=== PATIENT | male | born 1975 | race Caucasian/White ===

== ENCOUNTER 2020-01-12 19:44 | Emergency (ER) | payer BC, SELFPAY ==
[2020-01-12 19:47] VITALS: BP 142/85; PULSE 99; RESP 16; TEMP 36.1; O2SAT 99
--- NOTE | 2020-01-12 20:00 | ED.ALLEREA ---
HPI - Allergic Reaction General Chief complaint: Allergic Reaction Stated complaint: ALLERGIC REACTION Time Seen by Provider: 01/12/20 19:55 Source: patient and RN notes reviewed Mode of arrival: ambulatory Limitations: no limitations History of Present Illness HPI narrative: A 44 y/o male, who is allergic to chicken, presents to the ED after eating a couple bites of chicken 1 hour ago. He states that he was eating out when he ordered a vegan potpie and after eating a couple bites he asked if there was chicken in it, and when he was told there was he decided to come here. He reports that he took 100 mg of Benadryl roughly 30 minutes ago. He notes that he has a Epipen but denies using it. He also denies any SOB, wheezing, tingling in throat, N/V/D, or a rash. MD complaint: allergic reaction Onset (ago): hour(s) (1) Exposure: other (chicken) Known history of allergy to: To chicken meat and eggs. Treatment prior to arrival: benadryl (100 mg) Related Data Home Medications Medication Instructions Recorded Confirmed cetirizine 10 mg tablet 10 mg PO DAILY 12/20/19 fluticasone propionate 50 1 spray NASAL DAILY 12/20/19 mcg/actuation nasal spray,suspension Allergies Allergy/AdvReac Type Severity Reaction Status Date / Time Penicillins Allergy Unknown Verified 06/02/19 07:47 POULTRY Allergy Mild Uncoded 12/19/10 17:29 Review of Systems Review of Systems: Narrative: ENT: Denies tingling in throat. RESPIRATORY: Denies wheezing or dyspnea. GASTROINTESTINAL: Denies nausea, vomiting, or diarrhea. SKIN: Denies rash. All systems reviewed & are unremarkable except as noted in HPI and below PMFSH Family History Family History Mother Family history of osteoporosis Sibling Patient's brother is in good health Father Family history of diabetes mellitus in first degree relative Diabetes mellitus Social History Social History Smoking status: Never smoker Second hand tobacco smoke exposure: No Alcohol intake: current Gender identity (if verbalized by the patient): Male Exam Narrative: Exam Narrative: GENERAL: Well-appearing, well-nourished, and in no acute distress. HEAD: Normocephalic, atraumatic. EYES: PERRLA and EOMI. ENT: Nares clear, no rhinorrhea or epistaxis. Mucous membranes moist. NECK: Supple. CHEST: Clear to auscultation. No respiratory distress. HEART: Regular rate and rhythm. No murmur heard. Normal peripheral pulses. ABDOMEN: Soft, nontender, nondistended, normal active bowel sounds. EXTREMITIES: Normal range of motion. No edema. SKIN: Warm, dry, no rash. NEURO: No focal deficits. Alert and oriented X3. Course Vital Signs Vital signs: Vital Signs Temperature 36.1 C L 01/12/20 19:47 Pulse Rate 99 01/12/20 19:47 Respiratory Rate 16 01/12/20 19:47 Blood Pressure 142/85 H 01/12/20 19:47 Pulse Oximetry 99 01/12/20 19:47 Temperature 36.1 C L 01/12/20 19:47 Pulse Rate 99 01/12/20 19:47 Respiratory Rate 16 01/12/20 19:47 Blood Pressure 142/85 H 01/12/20 19:47 Pulse Oximetry 99 01/12/20 19:47 MDM - Allergic Reaction MDM Narrative Medical decision making narrative: Patient presented for evaluation of possible allergic reaction. At this point, symptoms are very mild. No sign of anaphylaxis. No airway compromise, no severe urticaria, no 2 system involvement. Patient was given additional medications via IV, monitored and had no recurrent symptoms. Again, no signs of anaphylaxis or unstable vital signs. Patient was then discharged home in stable condition, vies follow-up with his primary care physician as scheduled or return if he had any recurrent symptoms, change in symptoms. Differential Diagnosis Differential diagnosis: Likely anaphylaxis, allergic reaction, contact dermatitis, adverse reaction to drug and urticaria Discharge Plan Discharge Clinical Impression: Allergic re
[2020-01-12] MEDS: FAMOTIDINE 20 MG/2 ML VIAL 40 MG IV PUSH (20:48)
[2020-01-12 22:02] VITALS: BP 121/75; PULSE 59; RESP 16; O2SAT 97
== END 2020-01-12 22:05 | disposition home or self-care (01) ==
PROVIDERS: Emergency Provider Emergency Medicine; PCP Internal Medicine
DX: T78.40XA Allergy, unspecified, initial encounter (principal); Z91.012 Allergy to eggs; Z91.018 Allergy to other foods
CPT/HCPCS: 96374; 96375; 99284; J1100

== ENCOUNTER 2020-07-01 15:15 | Emergency (ER) | payer BC, SELFPAY ==
--- NOTE | ~2020-07-01 | XR_ITS ---
XR toe 2nd RT min 2V 07/01/2020 15:59 Indication: Right second toe pain after injury Procedure: 3 views right second toe Comparison: No prior studies for comparison. Findings: There is a mildly displaced avulsion fracture ventral base second proximal phalanx. Mild so ft tissue swelling. No foreign body. No other fracture or traumatic malalignment is seen. Impression: 1: Mildly displaced avulsion fracture ventral base right second proximal. Reviewed, dictated and finalized at location A. Impression: 1: Mildly displaced avulsion fracture ventral base right second proximal.
[2020-07-01 15:21] VITALS: BP 126/83; PULSE 80; RESP 18; TEMP 36.1; O2SAT 98
--- NOTE | 2020-07-01 15:35 | ED.LOWEXIN ---
HPI - Extremity Injury (Lower) General Chief Complaint: Extremity Injury, Lower Stated Complaint: R 2ND TOE PAIN Time Seen by Provider: 07/01/20 15:36 Source: patient Mode of arrival: ambulatory Limitations: no limitations History of Present Illness HPI Narrative: Patient presents for evaluation of right second toe pain. Patient states that he was chasing his son, tripped over a garden hose, and hit his right foot on a stoop. Patient is reporting swelling, right second toe pain. There is mild bruising at the base of the toe. Patient denies numbness. No head trauma or loss of consciousness. No other injuries. Pain is mild, aching in nature. Patient has had no difficulty with ambulation. Related Data Home Medications Medication Instructions Recorded Confirmed cetirizine 10 mg tablet 10 mg PO DAILY 12/20/19 fluticasone propionate 50 1 spray NASAL DAILY 12/20/19 mcg/actuation nasal spray,suspension Allergies Allergy/AdvReac Type Severity Reaction Status Date / Time Penicillins Allergy Unknown Unknown Verified 07/01/20 15:28 POULTRY Allergy Severe Anaphylaxis Uncoded 07/01/20 15:28 Review of Systems Review of Systems: Narrative: CONSTITUTIONAL: Denies fever CV: Denies chest pain RESPIRATORY: Denies dyspnea. GASTROINTESTINAL: Denies abdominal pain SKIN: Denies rash, reports second toe bruising MUSCULOSKELETAL: Denies back pain, reports second great toe pain NEUROLOGIC: Denies headache, denies head trauma PMFSH Past Medical History Medical History Allergic rhinitis Allergy to chicken meat Depression Egg allergy Exposure to influenza Herpes zoster Hypercholesteremia Sleep apnea Surgical History Surgical History No history of previous surgery Family History Family History Mother Family history of osteoporosis Sibling Patient's brother is in good health Father Family history of diabetes mellitus in first degree relative Diabetes mellitus Social History Social History Smoking status: Never smoker Second hand tobacco smoke exposure: No Alcohol intake: current Gender identity (if verbalized by the patient): Male Exam Narrative: Exam Narrative: GENERAL: Awake, alert, conversant HEAD: Normocephalic, atraumatic. EYES: PERRLA and EOMI. ENT: Nares clear, no rhinorrhea or epistaxis. Mucous membranes moist. NECK: Supple. CHEST: No respiratory distress, breathing even and non labored HEART: Regular rate, sinus rhythm ABDOMEN:Non distended, non tender EXTREMITIES: Normal range of motion. No foot edema. Mild edema, ecchymosis at the base of the second phalynx, right foot. DP pulse 2+. Intact sensation distally. SKIN: Warm, dry, no rash. NEURO:No focal deficits. Alert and oriented x3 Course Vital Signs Vital signs: Vital Signs Temperature 36.1 C L 07/01/20 15:21 Pulse Rate 80 07/01/20 15:21 Respiratory Rate 18 07/01/20 15:21 Blood Pressure 126/83 07/01/20 15:21 Pulse Oximetry 98 07/01/20 15:21 Temperature 36.1 C L 07/01/20 15:21 Pulse Rate 80 07/01/20 15:21 Respiratory Rate 18 07/01/20 15:21 Blood Pressure 126/83 07/01/20 15:21 Pulse Oximetry 98 07/01/20 15:21 MDM - Extremity Injury (Lower) MDM Narrative Medical decision making narrative: Patient with mildly displays second right toe fracture at the base. Neurovascularly intact. Will give patient hard soled shoe. I advised he can follow-up with his primary or orthopedic surgeon if he wanted but often these are typically nonoperative management. Patient advised to rest, ice the extremity and take anti-inflammatories to help with symptom control. Advised him to ambulate with the use of the shoe. Patient then discharged home. Imaging Data Radiologist's impression: ITS Impressi
[2020-07-01 16:45] VITALS: BP 127/81; PULSE 82; RESP 18; O2SAT 98
== END 2020-07-01 16:47 | disposition home or self-care (01) ==
PROVIDERS: Emergency Provider Emergency Medicine; PCP Internal Medicine
DX: S92.511A Displaced fracture of proximal phalanx of right lesser toe(s), initial encounter for closed fracture (principal); E78.00 Pure hypercholesterolemia, unspecified; G47.30 Sleep apnea, unspecified; W22.8XXA Striking against or struck by other objects, initial encounter
CPT/HCPCS: 73660; 99284

== ENCOUNTER 2025-05-01 08:06 | Emergency (ER) | payer BC, SELFPAY ==
--- NOTE | 2025-05-01 08:09 | ED_ITS ---
HPI - Eye Problem General Chief complaint: Eye Problems Stated complaint: Eye Irritation Source: patient and RN notes reviewed Mode of arrival: ambulatory Limitations: no limitations History of Present Illness HPI Narrative: Patient is a 49-year-old male who presents to the [facility] with complaints of left eye pain and redness. He states that he has had bilateral eye strain for the past couple days and has been using [id number] drops. He states that when he woke up this morning he had increased pain to the left eye along with some mild redness. He reports some drainage from the eye. Denies visual disturbance. Related Data Home Medications ?Medication ?Instructions ?Recorded ?Confirmed ?Last Taken ?Type cetirizine 10 mg tablet (Zyrtec) 10 mg PO DAILY 12/20/19 05/01/25 Unknown History Allergies Allergy/AdvReac Type Severity Reaction Status Date / Time Penicillins Allergy Unknown Unknown Verified 05/01/25 08:20 POULTRY Allergy Severe Anaphylaxis Uncoded 05/01/25 08:20 Review of Systems Review of Systems: CONSTITUTIONAL: Denies fever, chills, or sweats. EYES: Denies visual changes, but reports left eye pain and redness. ENT: Denies otalgia and sore throat CARDIOVASCULAR: Denies chest pain, palpitations, or edema. RESPIRATORY: Denies cough or dyspnea. GASTROINTESTINAL: Denies abdominal pain, nausea, vomiting, or diarrhea. GENITOURINARY: Denies dysuria or hematuria. SKIN: Denies rash or itching. MUSCULOSKELETAL: Denies back pain, joint pain, or myalgia. NEUROLOGIC: Denies headache, numbness, or weakness. Pertinent positives per HPI. [facility] Past Medical History Medical History (Updated 05/01/25 @ 08:34 by Ligia Gonzalez APRN) Allergy to chicken meat Exposure to influenza Herpes zoster Allergic rhinitis Depression Sleep apnea Egg allergy Hypercholesteremia Surgical History Surgical History No history of previous surgery Family History Family History Mother Family history of osteoporosis Sibling Patient's brother is in good health Father Family history of diabetes mellitus in first degree relative Diabetes mellitus Social History Social History Smoking status: Never smoker Second hand tobacco smoke exposure: No Alcohol intake: current Gender identity (if verbalized by the patient): Male Comments At the time of my signature, I reviewed and agree with the nursing past medical, surgical, social, and family history. There is no relevant family history pertinent to the patient complaint. Exam Narrative: GENERAL: This is a well-nourished, well-developed patient, in no apparent distress. HEAD: normocephalic, atraumatic. EYES: Injection noted to the left eye. Vision is grossly intact. EARS: External ears normal. Hearing grossly intact. NOSE: External nose normal with no obvious nasal discharge, nares without redness, no rhinorrhea. THROAT: Mucous membranes moist, posterior pharynx clear. NECK: Neck supple, non-tender without lymphadenopathy, masses or thyromegaly. CARDIOVASCULAR: Regular rate and rhythm without murmurs, gallops, or rubs. RESPIRATORY: Clear to auscultation. GASTROINTESTINAL: Abdomen soft. No guarding. SKIN: warm, intact with no suspicious lesions or rash, good texture and turgor. NEURO: awake, alert, and oriented to person, place and time. There were no obvious focal neurologic abnormalities. Course Course Level of Care: Express Care Visit Vital Signs Vital signs: Vital Signs Temperature 97.2 F L 05/01/25 08:12 Pulse Rate 51 L 05/01/25 08:12 Respiratory Rate 16 05/01/25 08:12 Blood Pressure 136/90 05/01/25 08:12 Pulse Oximetry 99 05/01/25 08:12 Oxygen Delivery Room Air 05/01/25 08:12 Temperature 97.2 F L 05/01/25 08:12 Pulse Rate 51 L 05/01/25 08:12 Respiratory Rate 16 05/01/25 08:12 Blood Pressure 136/90 05/01/25 08:12 Pulse Oximetry 99 05/01/25 08:12 Oxygen Delivery Room Air 05/01/25 08:12 Reviewed MDM - Eye Problem MDM Narrative Medical decision making narrative: You have been given a prescription for eye drops. Use the eye drops as instructed. If you are not better in two (2) days, you need to follow up with an bell spinner. Do not rub the eye or put anything else in the eye, this can cause abrasions (scratches) on the eye or lead to vision loss. Also it is important not to touch the tube or tip of drops to the eye, as this can cause further infection. Wash your hands very well before instilling the medication. Handwashing can help prevent the spread of disease. Follow up with PCP in 7-10 days Return to ER for problems Contact [facility] if you need an Manufacturer'S Representative [] Differential Diagnosis Differential diagnosis: Likely corneal abrasion, conjunctivitis and hyphema Critical Care Time Critical Care Time Critical Care Time: No Discharge Plan Discharge Clinical Impression: Corneal irritation of left eye Patient Disposition: Home Condition: Stable Instructions: Corneal Abrasion (ED), How to Use Eye Drops (ED) Additional Instructions: You have been given a prescription for eye drops. Use the eye drops as instructed. If you are not better in two (2) days, you need to follow up with an bell spinner. Do not rub the eye or put anything else in the eye, this can cause abrasions (scratches) on the eye or lead to vision loss. Also it is important not to touch the tube or tip of drops to the eye, as this can cause further infection. Wash your hands very well before instilling the medication. Handwashing can help prevent the spread of disease. Follow up with PCP in 7-10 days Return to ER for problems Contact [facility] if you need an Manufacturer'S Representative [] Patient Language: Spanish Prescriptions: New erythromycin 5 mg/gram (0.5 %) ointment 1 cm LEFT EYE DAILY Qty: 3.5 0RF No Action cetirizine [Zyrtec] 10 mg tablet 10 mg PO DAILY epinephrine 0.3 mg/0.3 mL auto-injector 0.3 mg IM ONCE Qty: 2 2RF Rx Instructions: as a single dose Follow-up/Referrals: UNKNOWN,DOCTOR [Non-Staff] - Time of Disposition: 08:34
[2025-05-01 08:12] VITALS: BP 136/90; PULSE 51; RESP 16; TEMP 36.2; O2SAT 99
== END 2025-05-01 08:40 | disposition home or self-care (01) ==
PROVIDERS: Emergency Provider Nurse Practitioner
DX: H18.892 Other specified disorders of cornea, left eye (principal); E78.00 Pure hypercholesterolemia, unspecified
CPT/HCPCS: 99213; G0463

== ENCOUNTER 2025-09-30 17:51 | Emergency (ER) | payer BC, SELFPAY ==
--- OUTSIDE RECORDS SUMMARY | 2024-04-16 15:30 | XMS_ITS ---
Author Organization [facility] ([address]) Address [address] [place] [address] Care Team Providers Care Travertine Installer Name Role Phone Bruno Starr Primary Care Provider UnavailGela Cummings Unavailable [phone] ZZ-Migration, Provider Unavailable Unavailab le Allergies Allergen (clinical drug ingredient) Drug/Non Drug Allergy documented on EMR Reaction Allergy Type Onset Date Status Information temporarily unavailable Penicillin Hives, throat swelling Drug Allergy Active REASON FOR VISIT Multum To Medispan Conversion Encounter Medications Medication SIG (Take, Route, Frequency, Duration) Notes Start Date End Date Status buPROPion HCl 200 MG 1 TAB(S) ORALLY ONCE A DAY; Duration: 30 DAY(S) *Please review and pick correct strength-formulati on from Medispan options. If intended option is not shown, discontinue and re-order from Quick Search* Active clonazePAM 0.5 MG 1 tab(s) orally once a day; Duration: 30 day(s) Active PATANASE (OLOPATADINE HYDROCHLORIDE) 665 MCG/INH 2 SPRAY(S) INTRANASALLY 2 TIMES A DAY; Duration: 30 DAY(S) *Please review for potential replacement for e-prescription and drug interaction check* 06/27/2011 Active Flonase Allergy Relief 50 MCG/ACT 2 spray(s) intranasally once a day; Duration: 30 day(s) 06/27/2011 Active NASAL WASHES N/A DIRECTED INTRANASALLY NEEDED; Duration: 30 *Please review for potential replacement for e-prescription and drug interaction check* 06/27/2011 Active EpiPen 2-Jonathan 0.3 MG/0.3ML 0.3 mg intramuscularly once; Duration: 1 dose(s) 06/27/2011 Active ZyrTEC Allergy 10 MG 1 tab(s) orally once a day; Duration: 30 day(s) 06/27/2011 Active Simvastatin 20 MG 1 tab(s) orally once a day (at bedtime); Duration: 30 day(s) Active Pataday 0.2 % 1 gtt in each affect ed eye once a day; Duration: 30 day(s) 06/27/2011 Active Encounters Encounter Location Date Provider Diagnosis [address] [address] 04/16/2024 Provider ZZ-Migration Allergic rhinitis due to allergen 477.8 ; Chronic allergic conjunctivitis NOS 372.14 and Anaphylactic shock due to adverse food reaction NOS 995.60 Assessments Encounter Date Diagnosis (ICD Code) Assessment Notes Treatment Notes Treatment Clinical Notes Section Notes 04/16/2024 Allergic rhinitis due to allergen (ICD9-CM - 477.8) 04/16/2024 Chronic allergic conjunctivitis NOS (ICD9-CM - 372.14) 04/16/2024 Anaphylactic shock due to adverse food reaction NOS (ICD9-CM - 995.60) Plan Of Treatment Medication Medication Name Sig Start Date Stop Date Notes PATANASE (OLOPATADINE HYDROCHLORIDE) 665 MCG/INH 2 SPRAY(S) INTRANASALLY 2 TIMES A DAY; Duration: 30 DAY(S) 06/27/2011 *Please review for potential replacement for e-prescription and drug interaction check* Flonase Allergy Relief 50 MCG/ACT 2 spray(s) intranasally once a day; Duration: 30 day(s) 06/27/2011 NASAL WASHES N/A DIRECTED INTRANAS ALLY NEEDED; Duration: 30 06/27/2011 *Please review f or potential replacement for e-prescription and drug interaction check* EpiPen 2-Jonathan 0.3 MG/0.3ML 0.3 mg intramuscularly once; Duration: 1 dose(s) 06/27/2011 ZyrTEC Allergy 10 MG 1 tab(s) orally onc e a day; Duration: 30 day(s) 06/27/2011 Pataday 0.2 % 1 gtt in each affect ed eye once a day; Duration: 30 day(s) 06/27/2011 Progress Notes * Mars YOON PDOB:1975 (50 yo M)Acc No.[id number]:04/16/2024 Patient: Mars DURHAM Provider: Anita Petty :1975 A ge:48 Y S ex:Male Date:04/16/2024 Address:[address] [place] [address] Pcp:Bruno Starr Subjective: * Chief Complaints: * 1 . Multum To Medispan Conversion Encounter. * Medical History: * Medications: T aking buPROPion HCl 200 MG TABLET 1 TAB(S) ORALLY ONCE A DAY , Notes to Pharmacist: *Please review and pick correct [facility]. If intended option is not shown, discontinue and re-order from Quick Search*, Taking clonazePAM 0.5 MG Tablet 1 tab(s) orally once a day , Taking Simvastatin 20 MG Tablet 1 tab(s) orally once a day (at bedtime) * Allergies: P enicillin: Hives, throat swelling - Allergy. Objective: * Vitals: Assessment: * Assessment: 1. A llergic rhinitis due to allergen - 477.8 (Primary) 2 . C hronic allergic conjunctivitis NOS - 372.14 3 . A naphylactic shock due to adverse food reaction NOS - 995.60 Plan: * Treatment: 2. C hronic allergic conjunctivitis NOS Start Pataday Solution, 0.2 %, 1 gtt, in each affected eye, once a day, 30 day(s), 1, Refills 3.? 3. A naphylactic shock due to adverse food reaction NOS Start EpiPen 2-Jonathan Solution Auto-injector, 0.3 MG/0.3ML, 0.3 mg, intramuscularly, once, 1 dose(s), 4, Refills PRN. * Billing Information: * Visit Code: * Procedure Codes: * Electronic signature of Armen De La TorreZ-Migration on 09/30/2025 at 05:53 PM DEMONSTRATOR KNITTING Sign off status: Pending * Provider: Anita Petty Date: 0 04/16/2024 Generated for Judy lopez/Adelita/Marensmitting on: 1 11/30/2024 05:53 PM DEMONSTRATOR KNITTING
--- NOTE | ~2025-09-30 | XR_ITS ---
EXAMINATION: XR hand LT min 3V, 09/30/2025 18:43 OIL WINTERIZER HISTORY: L hand laceration COMPARISON: No comparisons available. Findings: No acute fracture or malalignment. No significant degenerative changes. Soft tissues unremarkable. Impression: No acute fracture or malalignment. Reviewed, dictated and finalized at location P. WINTERIZER Impression: No acute fracture or malalignment.
--- OUTSIDE RECORDS SUMMARY | 2025-09-30 17:53 | XMS_ITS | Patient Health Record ---
Author Organization [facility] [place] ([address]) Address [address] [place] [address] Care Team Providers Care Electronic Imaging System Operator Name Role Phone Bruno Starr Primary Care Provider Gela Brito Unavailable [phone] Allergies Allergen (clinical drug ingredient) Drug/Non Drug Allergy documented on EMR Reaction Allergy Type Onset Date Status Information temporarily unavailable Penicillin Hives, throat swelling Drug Allergy Active Reason For Referral No Information Medications Medication SIG (Take, Route, Frequency, Duration) Notes Start Date End Date Status EPIPEN 2-JONATHAN 0.3 mg 0.3 mg intramuscularly once; Duration: 1 dose(s) 06/27/2011 Active buPROPion HCl 200 MG 1 TAB(S) ORALLY ONCE A DAY; Duration: 30 DAY(S) *Please review and pick correct strength-formulati on from [facility] options. If intended option is not shown, discontinue and re-order from Quick Search* Active EpiPen 2-Jonathan 0.3 MG/0.3ML 0.3 mg intramuscularly once; Duration: 1 dose(s) 06/27/2011 Active BUPROPION 200 mg 1 tab(s) orally once a day; Duration: 30 day(s) Active ZyrTEC Allergy 10 MG 1 tab(s) orally once a day; Duration: 30 day(s) 06/27/2011 Active Simvastatin 20 MG 1 tab(s) orally once a day (at bedtime); Duration: 30 day(s) Active Pataday 0.2 % 1 gtt in each affect ed eye once a day; Duration: 30 day(s) 06/27/2011 Active PATANASE (OLOPATADINE HYDROCHLORIDE) 665 MCG/INH 2 [...] e-prescription and drug interaction check* 06/27/2011 Active SIMVASTATIN 20 mg 1 tab(s) orally once a day (at bedtime); Duration: 30 day(s) Active clonazePAM 0.5 MG 1 tab(s) orally once a day; Duration: 30 day(s) Active CLONAZEPAM 0.5 mg 1 tab(s) orally once a day; Duration: 30 day(s) Active ZYRTEC 10 mg 1 tab(s) orally once a day; Duration: 30 day(s) 06/27/2011 Active FLONASE 0.05 mg/inh 2 spray(s) intranasally once a day; Duration: 30 day(s) 06/27/2011 Active PATADAY 0.2% 1 gtt in each affect ed eye once a day; Duration: 30 day(s) 06/27/2011 Active Problems Problem Type SNOMED Code ICD Code Onset Dates Problem Status W/U Status Risk Notes Problem Information temporarily unavailable Chronic allergic conjunctivitis NOS (372.14) Active confirmed Problem Information temporarily unavailable Allergic rhinitis due to allergen (477.8) Active confirmed Problem Information temporarily unavailable Anaphylactic shock due to adverse food reaction NOS (995.60) Active confirmed Problem Information temporarily unavailable HX-PENICILLIN ALLERGY (V14.0) Active confirmed Plan Of Treatment No Information Insurance Providers Payer Name Payer Address Payer Phone Subscriber Number Group Number Insured Name Patient Relationship to Insured Coverage Start Date Coverage End Date [facility] [address] [place] [address] [id number] Jacqueline Taylor Spouse - patient is the spouse of the insured Medical (General) History Medical History History ICD Code Allergic rhinoconjunctivitis Food allergy to poultry and egg yolk Obstructive sleep apnea Hyperlipidemia Anxiety/depression Surgical History Surgery Date(Month/Year) Fractured right thumb 2004 Hospitalization History Reason Date(Month/Year) Food anaphylaxis 1998
--- OUTSIDE RECORDS SUMMARY | 2025-09-30 17:53 | XMS_ITS | Clinical Summary ---
Author Organization [facility] Address [address] [place] [address] Phone Care Team Providers Care Evp Business Development Name Role Phone Unavailable Primary Care Provider Unavailabl e Immunizations Immunization Administration Dates Next Due INFLUENZA VACCINE QUADRIVALE NT 6 MOS UP PF IM 08/14/2020 INFLUENZA VACCINE QUADRIVALE NT RECOMB 18 YR UP PF IM 08/12/2023,07/30/2022,08/14/2021 INFLUENZA VACCINE RECOMBINAN T TRIVALENT, (9 YR UP), 0.5ML (PF), IM 08/03/2024 Influenza Vaccine Tri Rcmb 18+ PF IM 08/17/2019 Social History Tobacco Use Types Packs/Day Years Used Date Smoking Tobacco: Never Assessed Sex and Gender Information Value Date Recorded Sex Assigned at Not on file 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
--- OUTSIDE RECORDS SUMMARY | 2025-09-30 17:54 | XMS_ITS | Clinical Summary ---
Author Organization [facility] Building [facility] Address [address] [place] [address] Care Team Providers Care Hand Fabric Cutter Name Role Phone Michele Sinclair MD Primary Care Provider +1- [phone] Allergies Active Allergy Reactions Criticality Noted Date Comments Penicillins Unknown 06/25/2017 Medications cetirizine (ZyrTEC) 10 mg tablet Take 1 tablet (10 mg total) by mouth daily Active EPINEPHrine 0.3 mg/0.3 mL auto-injection syringeIndicati ons:Anaphylaxis Inject 0.3 mL (0.3 mg total) into the muscle as instructed as needed for anaphylaxis Call 911 after use. 3 each 3 5 Active atorvastatin (LIPITOR) 20 mg tablet Take 1 tablet (20 mg total) by mouth daily 90 tablet 4 5 09/15/20 26 Active Active Problems Problem Noted Date Diagnosed Date Encounter for colorectal cancer screening 2024 Family history of premature coronary artery dise ase 09/15/2025 BMI 27.0-27.9,adult 09/15/2025 COVID-19 03/04/2022 Encounters Date Type Department Care Team Description 09/15/2025 8:20 AM ADMINISTRATIVE SALES ASSISTANT Office [facility] [address] [address] Michele Sinclair MD Health maintenance examination (Primary Dx); Encounter for colorectal cancer screening; Family history of premature coronary artery disease; BMI 27.0-27.9,adult 09/15/2025 Results Follow-Up [facility] [address] [place] [phone] Michele Sinclair MD POCT hemoglobin A1c, POCT lipid panel, Comprehensive metabolic panel, Additional followed-up results: 2 from Last 3 Months Immunizations Immunization Administration Dates Next Due Flucelvax Influenza Quad MDI 11/20/2013 Influenza, Quadrivalent, Rec ombinant, Egg Free, Preservative Free, Intramuscular 08/12/2023,07/30/2022,08/14/2021 Influenza, Quadrivalent, Spl it, Preservative Free, Intramuscular 08/14/2020 Influenza, Trivalent, Adjuva nted, Intramuscular 08/03/2024,08/17/2019 Influenza, Trivalent, Cell C ulture-based MDCK, Preservative Free, Antibiotic Free, Intramuscular 07/14/2025 Influenza, Trivalent, IM (MDV) 11/20/2013 Influenza, Trivalent, Recomb inant, Egg Free, Preservative Free, Antibiotic Free, IM (FLUBLOK) 08/03/2024 Pfizer SARS-CoV-2 Monovalent Vaccination (12+ Yrs) PURPLE 01/24/2021,01/03/2021 Tdap 09/15/2025,06/03/2011 Surgical History Surgery Date Site/Laterality Comments VASECTOMY Medical History Medical History Date Comments DEBRA (obstructive sleep apnea) Family History Medical History Relation Name Comments No Known Problems Brother No Known Problems Daughter Heart attack Father 68 Heart attack Maternal Grandmother No Known Problems Mother Dementia Paternal Grandmother 94 No Known Problems Son Relation Name Status Comments Brother Alive Daughter Alive Father 68 Maternal Grandfather Other Maternal Grandmother Mother Alive Paternal Grandfather Paternal Grandmother 94 Son Alive Social History Tobacco Use Types Packs/Day Years Used Date Smoking Tobacco: Never Smokeless Tobacco: Never Tobacco Cessation:Counseling Given: Not Answered Alcohol Use Standard Drinks/Week Comments Yes 0 (1 standard drink = 0.6 oz pur e alcohol) Sex and Gender Information Value Date Recorded Sex Assigned at Not on file Legal Sex Male 8:07 AM CDT Gender Identity Male 05/01/2025 6:24 AM CDT Sexual Orientation Not on file 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 Not on file Not on file Last Filed Vital Signs Vital Sign Reading Time Taken Comments Blood Pressure 143/85 09/15/2025 8:19 AM ADMINISTRATIVE SALES ASSISTANT Pulse 54 09/15/2025 8:19 AM ADMINISTRATIVE SALES ASSISTANT Temperature 36.5 C (97.7 F) 01/28/2024 1:51 PM CDT Respiratory Rate 18 05/07/2023 4:15 PM CDT Oxygen Saturation 100% 09/15/2025 8:19 AM ADMINISTRATIVE SALES ASSISTANT Inhaled Oxygen Concentration - - Weight 87.1 kg (192 lb) 09/15/2025 8:19 AM ADMINISTRATIVE SALES ASSISTANT Height 177.8 cm (5' 10) 09/15/2025 8:19 AM ADMINISTRATIVE SALES ASSISTANT Body Mass Index 27.55 09/15/2025 8:19 AM ADMINISTRATIVE SALES ASSISTANT Plan of Treatment Health Maintenance Due Date Last Done Comments Colon Cancer Screening-Colonoscopy 1976 Depression Screening 1976 Hepatitis C Screening 1976 Hepatitis B Screening 1994 Regular Well Visit/Exam 18-64 09/15/2026 09/15/2025, 01/28/2024, 12/17/2021 DTaP/Tdap/Td Vaccine (3 - Td or Tdap) 09/15/2035 09/15/2025, 06/03/2011 Covid-19 Vaccine Completed 07/14/2025, , 07/25/2023, Additional history exists Influenza Vaccine Completed 07/14/2025, , 08/03/2024, Additional history exists Pneumococcal vaccine <65 Aged Out No longer eligible based on patient's age to complete this topic Procedures Procedure Name Priority Date/Time Associated Diagnosis Comments POCT LIPID PANEL Routine 09/15/2025 8:31 AM ADMINISTRATIVE SALES ASSISTANT Health maintenance examination POCT HEMOGLOBIN A1C Routine 09/15/2025 8 :28 AM ADMINISTRATIVE SALES ASSISTANT Health maintenance examination PSA SCREEN Routine 09/15/2025 7:47 AM ADMINISTRATIVE SALES ASSISTANT Health maintenance examination CBC WITH AUTO DIFFERENTIAL Routine 09/15/2025 7:47 AM ADMINISTRATIVE SALES ASSISTANT Health maintenance examination COMPREHENSIVE METABOLIC PANEL Routine 09/15/2025 7:47 AM ADMINISTRATIVE SALES ASSISTANT Health maintenance examination from Last 3 Months Results * (ABNORMAL) POCT lipid panel (09/15/2025 8:31 AM ADMINISTRATIVE SALES ASSISTANT) Pathologist [facility] Cholesterol, POC 226 <200 MG/DL HDL, POC 42 >=40 mg/dL Triglycerides, POC 182(A) <=149 mg/dL LDL Cholesterol POC 148(A) <=129 mg/dL Chol/HDL Ratio, POC 5.3 NONE Non-HDL Cholesterol, POC 184 NONE mg/dL Cholesterol Total, POC 226(A) 30 - 199 mg/dL Capillary blood 09/15/2025 8 :31 AM ADMINISTRATIVE SALES ASSISTANT us Michele Sinclair MD POINT OF CARE TEST ORDERAB LES Final Result * POCT hemoglobin A1c (09/15/2025 8:28 AM ADMINISTRATIVE SALES ASSISTANT) [facility] Hemoglobin A1C, POC 5.2 4.0 - 5.6 % Blood 09/15/2025 8:28 AM ADMINISTRATIVE SALES ASSISTANT us Michele Sinclair MD POINT OF CARE TEST ORDERAB LES Final Result * PSA screen (09/15/2025 7:47 AM ADMINISTRATIVE SALES ASSISTANT) [facility] PSA, Total 1.0 0.0 - 4.0 ng/mL [facility] Blood 09/15/2025 7:47 AM ADMINISTRATIVE SALES ASSISTANT 09/15/2025 9:22 AM ADMINISTRATIVE SALES ASSISTANT us Michele Sinclair MD LAB BLOOD ORDERABLES Final Result [facility] [address] [phone] * (ABNORMAL) CBC with auto differential (09/15/2025 7:47 AM ADMINISTRATIVE SALES ASSISTANT) [facility] WBC 5.9 3.5 - 10.0 K/uL [facility] RBC 4.05(L) 4.60 - 6.20 M/uL [facility] Hemoglobin 13.1(L) 13.9 - 17.7 g/dL [facility] Hematocrit 37.1 35.0 - 55.0 % [facility] MCV 91.5 75.0 - 100.0 fL [facility] MCH 32.30 25.00 - 35.00 pg [facility] MCHC 35.30 31.00 - 38.00 g/dL [facility] RDW 13.2 11.0 - 16.0 % [facility] Platelets 222 140 - 400 K/uL [facility] MPV 9.2 8.0 - 11.0 fL [facility] Granulocyte, Absolute 3.7 1.2 - 8.0 K/uL [facility] Lymphocyte, Absolute 1.7 0.5 - 5.0 K/uL [facility] Monocyte, Absolute 0.5 0.1 - 1.5 K/uL [facility] Granulocyte, Percentage 62.9 35.0 - 80.0 % [facility] Lymphocyte, Percentage 29.7 15.0 - 50.0 % [facility] Monocyte, Percentage 7.4 2.0 - 15.0 % [facility] Blood 09/15/2025 7:47 AM ADMINISTRATIVE SALES ASSISTANT 09/15/2025 9:22 AM ADMINISTRATIVE SALES ASSISTANT us Michele Sinclair MD LAB BLOOD ORDERABLES Final Result [facility] [address] [phone] * Comprehensive metabolic panel (09/15/2025 7:47 AM ADMINISTRATIVE SALES ASSISTANT) [facility] Glucose 88 74 - 200 mg/dL [facility] BUN 9 6 - 20 mg/dL [facility] Creatinine 0.83 0.70 - 1.30 mg/dL [facility] BUN/Creat Ratio 10 Ratio [facility] Bilirubin, Total 0.3 0.0 - 1.2 mg/dL [facility] AST (SGOT) 24 0 - 40 U/L [facility] ALT (SGPT) 17 10 - 50 U/L [facility] Alkaline phosphatase 72 40 - 129 U/L [facility] Calcium 9.4 8.6 - 10.0 mg/dL [facility] Sodium 137 135 - 145 mEq/L [facility] Potassium 4.0 3.5 - 5.1 mEq/L [facility] Chloride 102 98 - 107 mEq/L [facility] CO2 27.7 22.0 - 32.0 mEq/L [facility] Anion Gap 7 3 - 12 mEq/L [facility] Total Protein 7.0 6.0 - 8.1 g/dL [facility] Albumin 4.6 3.5 - 5.2 g/dL [facility] Globulin 2.4 g/dL [facility] Albumin/Globulin 1.9 Ratio [facility] eGFR 107.22 [facility] Blood 09/15/2025 7:47 AM ADMINISTRATIVE SALES ASSISTANT 09/15/2025 9:22 AM ADMINISTRATIVE SALES ASSISTANT Michele Sinclair MD LAB BLOOD ORDERABLES Final Result [facility] [address] [address], [facility] from Last 3 Months Insurance [employer] ACCESS CHOICE [employer] ACCESS CHOICE [employer] ACCESS CHOICE Care Teams Hand Fabric Cutter Relationship Specialty Start Date End Date Michele Sinclair MD PCP - General Internal Medicine 11/29/21
[2025-09-30 17:56] VITALS: BP 167/98; PULSE 70; RESP 18; TEMP 36.6; O2SAT 97
[2025-09-30 20:28] VITALS: BP 128/72; PULSE 82; RESP 18; TEMP 36.4; O2SAT 100
[2025-09-30] MEDS: CEPHALEXIN 500 MG CAPSULE PO (20:34)
--- NOTE | 2025-09-30 22:10 | ED.UPPEXIN ---
HPI - Extremity Injury (Upper) General Chief Complaint: Extremity Injury, Upper Stated Complaint: upper extremity injruy Time Seen by Provider: 09/30/25 19:28 History of Present Illness HPI narrative: Patient was doing some woodworking, and accidentally hit his left thumb with a saw, thankfully a retracted automatically but he did injure his left thumb tip. Bleeding controlled and shots up-to-date Related Data Home Medications ?Medication ?Instructions ?Recorded ?Confirmed ?Last Taken ?Type cetirizine 10 mg tablet (Zyrtec) 10 mg PO DAILY 12/20/19 05/01/25 Unknown History Allergies Allergy/AdvReac Type Severity Reaction Status Date / Time Penicillins Allergy Unknown Unknown Verified 09/30/25 17:59 POULTRY Allergy Severe Anaphylaxis Uncoded 05/01/25 08:20 Review of Systems Review of Systems: All systems reviewed & are unremarkable except as noted in HPI and below PMFSH Past Medical History Medical History (Updated 10/01/25 @ 00:00 by [facility]) Allergy to chicken meat Exposure to influenza Herpes zoster Allergic rhinitis Depression Sleep apnea Egg allergy Hypercholesteremia Surgical History Surgical History No history of previous surgery Family History Family History Mother Family history of osteoporosis Sibling Patient's brother is in good health Father Family history of diabetes mellitus in first degree relative Diabetes mellitus Social History Social History Smoking status: Never smoker Second hand tobacco smoke exposure: No Alcohol intake: current Gender identity (if verbalized by the patient): Male Exam Narrative: EXAMINATION OF ORGAN SYSTEMS/BODY AREAS: Constitutional: Vital signs per nursing GENERAL:[No acute distress, non-toxic appearing.] HEAD: Normal with no signs of head trauma. EYES: EOMI, conjunctiva normal ENT: Hearing grossly intact LUNGS: Nonlabored breathing. HEART: [Regular rate and rhythm] ABD: [Soft], [nontender to palpation] EXT: Normal range of motion; left thumbnail with partial avulsion in multiple pieces, bleeding under nail SKIN: See above NEURO: [Alert and oriented x 3. No gross focal sensory or strength deficits.] PSYCH: Normal affect Course Vital Signs Vital signs: Vital Signs Temperature 97.8 F 09/30/25 17:56 Pulse Rate 70 09/30/25 17:56 Respiratory Rate 18 09/30/25 17:56 Blood Pressure 167/98 H 09/30/25 17:56 Pulse Oximetry 97 09/30/25 17:56 Oxygen Delivery Room Air 09/30/25 17:56 Temperature 97.6 F 09/30/25 20:28 Pulse Rate 82 09/30/25 20:28 Respiratory Rate 18 09/30/25 20:28 Blood Pressure 128/72 09/30/25 20:28 Pulse Oximetry 100 09/30/25 20:28 Oxygen Delivery Room Air 09/30/25 20:28 Procedures Laceration Laceration 1: Date: 09/30/25 Time: 20:30 Site: hand Side (If applicable): left Size (cm): 2 Description: linear and irregular Depth: simple, single layer Pre-repair: wound explored, irrigated, irrigated extensively, minor debridement and other (Avulsed nail removed) ====== Skin Level ====== Skin layer closed with: vicryl Size (cm): 4-0 Number of sutures: 2 Technique: simple, interrupted ====== Subcutaneous Layer ====== ====== Muscle Layer ====== ====== Tendon Layer ====== Nerve Block Nerve Block 1: Nerve block date: 09/30/25 Nerve block time: 20:30 Local Anesthetic: bupivacaine 0.25% Amount of anesthesia used (mL): 3 Side: left Nerve Blocks: digital Procedure Successful: Yes Patient Tolerated Procedure: well and no complications Complications: none MDM - Extremity Injury (Upper) MDM Narrative Medical decision making narrative: Patient presenting here with saw injury to his left thumb. On exam he does have injury to his left thumb, x-ray viewed interpreted by myself showing distal phalanx fracture, nondisplaced. See procedure note for nerve block, after anesthesia achieved, I was able to remove the room and/broken avulsed nail pieces, irrigated thoroughly, did find laceration to the nailbed, wound margins revised, laceration repaired with 2 absorbable sutures. Discussed case with Dr Wiggins who will follow-up with him in clinic, will start him on antibiotics, wound is dressed and a splint placed. Patient agreeable to plan with return precautions Discharge Plan Discharge Clinical Impression: Injury of thumb, left Patient Disposition: Home Condition: Stable Instructions: Antibiotic Form, Finger Fracture (ED), Acute Wounds (ED) Additional Instructions: Please see the medications as prescribed, and follow-up with the hand doctor, keep the wound clean, change the dressing at least once a day, and if you notice any worsening redness or pain or anything else concerning, please come back to the hospital. Patient Language: Bolivian Prescriptions: New cephalexin 500 mg capsule 500 mg PO Q12H 5 Days Qty: 10 0RF No Action erythromycin 5 mg/gram (0.5 %) ointment 1 cm LEFT EYE DAILY Qty: 3.5 0RF cetirizine [Zyrtec] 10 mg tablet 10 mg PO DAILY epinephrine 0.3 mg/0.3 mL auto-injector 0.3 mg IM ONCE Qty: 2 2RF Rx Instructions: as a single dose Follow-up/Referrals: PHYSICIAN NOT ON STAFF,NONSTAFF [Non-Staff] Jake Wiggins MD [Physician, Orthopedics] - 3 Days
== END 2025-09-30 21:21 | disposition home or self-care (01) ==
PROVIDERS: Emergency Provider Emergency Medicine; PCP Internal Medicine
DX: S61.112A Laceration without foreign body of left thumb with damage to nail, initial encounter (principal); E78.00 Pure hypercholesterolemia, unspecified; G47.30 Sleep apnea, unspecified; W31.2XXA Contact with powered woodworking and forming machines, initial encounter
CPT/HCPCS: 12001; 73130; 99283; A9270

== ENCOUNTER 2025-10-01 22:21 | Emergency (ER) | payer BC, SELFPAY ==
--- OUTSIDE RECORDS SUMMARY | 2024-04-16 15:30 | XMS_ITS ---
Author Organization [facility] [place] ([address]) Address [address] [place] [address] Care Team Providers Care Night Supervisor Name Role Phone Bruno Starr Primary Care Provider UnavailGela Cummings Unavailable [phone] Z[facility]-Migration, Provider Unavailable Unavailab le Allergies Allergen [...] Active Encounters Encounter Location Date Provider Diagnosis [address] [address] 04/16/2024 Provider ZZ-Migration Allergic rhinitis due to [...] * Mars YOON PDOB:1975 (50 yo M)Acc No.[id number]:04/16/2024 Patient: Mars DURHAM Provider: Anita Petty :1975 A ge:48 Y S ex:Male Date:04/16/2024 Address:[address] [place] [address] Pcp:Bruno Starr Subjective: * Chief Complaints: * 1 . Multum To Medispan Conversion Encounter. * Medical History: * Medications: T aking buPROPion HCl 200 MG TABLET 1 TAB(S) ORALLY ONCE A DAY , Notes to Pharmacist: *Please review and pick correct strength[facility]ulation from [facility]. If intended option is not [...] * Procedure Codes: * Electronic signature of Prov okr ZZ-Migration on 10/01/2025 at 10:23 PM COLLET MAKING MACHINE OPERATOR Sign off status: Pending * Provider: Anita Petty Date: 0 04/16/2024 Generated for Judy lopez/Adelita/Marensmitting on: 1 12/01/2024 10:23 PM COLLET MAKING MACHINE OPERATOR
--- OUTSIDE RECORDS SUMMARY | 2025-10-01 22:23 | XMS_ITS | Clinical Summary ---
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
--- OUTSIDE RECORDS SUMMARY | 2025-10-01 22:23 | XMS_ITS | Encounter Summary ---
Author Organization [facility] Address [address] [place] [address] Care Team Providers Care Plate Drying Machine Tender Name Role Phone Michele Sinclair MD Primary Care Provider +1- [phone] Encounter Details Date Type Department Care Team (Latest Contact Info) Description 09/15/2025 Results Follow-Up [facility] [address] [facility] [address] [place] [address] Michele Sinclair MD [facility] [address] [place], [place] [id number] POCT hemoglobin A1c, POCT lipid panel, Comprehensive metabolic panel, Additional followed-up results: 2 Social History Tobacco Use Types Packs/Day Years Used Date Smoking Tobacco: Never Smokeless Tobacco: Never Alcohol Use Standard Drinks/Week Comments Yes 0 (1 standard drink = 0.6 oz pur e alcohol) Sex and Gender Information Value Date Recorded Sex Assigned at Not on file Legal Sex Male 8:07 AM CDT Gender Identity Male 05/01/2025 6:24 AM CDT Sexual Orientation Not on file 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
--- OUTSIDE RECORDS SUMMARY | 2025-10-01 22:23 | XMS_ITS | Patient Health Record ---
Author Organization [facility] [place] ([address]) Address [address] [place] [address] Care Team Providers Care Cake Maker Name Role Phone Bruno Starr Primary Care Provider Gela Brito Unavailable [phone] Allergies Allergen (clinical drug ingredient) Drug/Non Drug [...] review and pick correct strength-formulati on from Groupspeak options. 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
[2025-10-01 22:24] VITALS: BP 139/88; PULSE 56; RESP 18; TEMP 36.3; O2SAT 97
--- OUTSIDE RECORDS SUMMARY | 2025-10-01 22:24 | XMS_ITS | Clinical Summary ---
Author Organization [facility] Address [address] [place] [address] Care Team Providers Care Silverlight Developer Name Role Phone Michele Sinclair MD Primary Care Provider +1- [phone] Allergies Active Allergy Reactions Criticality Noted Date [...] Department Care Team Description 09/15/2025 8:20 AM FILEMAKER DEVELOPER Office Visit [facility] [address] [address] Michele Sinclair MD Health maintenance examination (Primary Dx); Encounter for colorectal cancer screening; Family history of premature coronary artery disease; BMI 27.0-27.9,adult 09/15/2025 Results Follow-Up [facility] [address] [place] [phone] Michele Sinclair MD POCT hemoglobin A1c, POCT [...] 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 Not on file Not on file Last Filed Vital Signs Vital Sign Reading Time Taken Comments Blood Pressure 143/85 09/15/2025 8:19 AM FILEMAKER DEVELOPER Pulse 54 09/15/2025 8:19 AM FILEMAKER DEVELOPER Temperature 36.5 C (97.7 F) 01/28/2024 1:51 PM CDT Respiratory Rate 18 05/07/2023 4:15 PM CDT Oxygen Saturation 100% 09/15/2025 8:19 AM FILEMAKER DEVELOPER Inhaled Oxygen Concentration - - Weight 87.1 kg (192 lb) 09/15/2025 8:19 AM FILEMAKER DEVELOPER Height 177.8 cm (5' 10) 09/15/2025 8:19 AM FILEMAKER DEVELOPER Body Mass Index 27.55 09/15/2025 8:19 AM FILEMAKER DEVELOPER Plan of Treatment Health Maintenance Due Date [...] POCT LIPID PANEL Routine 09/15/2025 8:31 AM FILEMAKER DEVELOPER Health maintenance examination POCT HEMOGLOBIN A1C Routine 09/15/2025 8 :28 AM FILEMAKER DEVELOPER Health maintenance examination PSA SCREEN Routine 09/15/2025 7:47 AM FILEMAKER DEVELOPER Health maintenance examination CBC WITH AUTO DIFFERENTIAL Routine 09/15/2025 7:47 AM FILEMAKER DEVELOPER Health maintenance examination COMPREHENSIVE METABOLIC PANEL Routine 09/15/2025 7:47 AM FILEMAKER DEVELOPER Health maintenance examination from Last 3 Months Results * (ABNORMAL) POCT lipid panel (09/15/2025 8:31 AM FILEMAKER DEVELOPER) Pathologist [facility] Cholesterol, POC 226 <200 MG/DL HDL, POC 42 >=40 mg/dL Triglycerides, POC 182(A) <=149 mg/dL LDL Cholesterol POC 148(A) <=129 mg/dL Chol/HDL Ratio, POC 5.3 NONE Non-HDL Cholesterol, POC 184 NONE mg/dL Cholesterol Total, POC 226(A) 30 - 199 mg/dL Capillary blood 09/15/2025 8 :31 AM FILEMAKER DEVELOPER us Michele Sinclair MD POINT OF CARE TEST ORDERAB LES Final Result * POCT hemoglobin A1c (09/15/2025 8:28 AM FILEMAKER DEVELOPER) [facility] Hemoglobin A1C, POC 5.2 4.0 - 5.6 % Blood 09/15/2025 8:28 AM FILEMAKER DEVELOPER us Michele Sinclair MD POINT OF CARE TEST ORDERAB LES Final Result * PSA screen (09/15/2025 7:47 AM FILEMAKER DEVELOPER) [facility] PSA, Total 1.0 0.0 - 4.0 ng/mL [facility] Blood 09/15/2025 7:47 AM FILEMAKER DEVELOPER 09/15/2025 9:22 AM FILEMAKER DEVELOPER us Michele Sinclair MD LAB BLOOD ORDERABLES Final Result [facility] [address] [phone] * (ABNORMAL) CBC with auto differential (09/15/2025 7:47 AM FILEMAKER DEVELOPER) [facility] WBC 5.9 3.5 - 10.0 K/uL [facility] RBC 4.05(L) 4.60 - 6.20 M/uL [...] % [facility] Blood 09/15/2025 7:47 AM FILEMAKER DEVELOPER 09/15/2025 9:22 AM FILEMAKER DEVELOPER us Michele Sinclair MD LAB BLOOD ORDERABLES Final Result [facility] [address] [phone] * Comprehensive metabolic panel (09/15/2025 7:47 AM FILEMAKER DEVELOPER) [facility] Glucose 88 74 - 200 mg/dL [...] 107.22 [facility] Blood 09/15/2025 7:47 AM FILEMAKER DEVELOPER 09/15/2025 9:22 AM FILEMAKER DEVELOPER Michele Sinclair MD LAB BLOOD ORDERABLES Final Result [facility] [address] [phone], [facility] from Last 3 Months Insurance [employer] ACCESS CHOICE [employer] CHO[employer] CHO[employer] Care Teams Silverlight Developer Relationship Specialty Start Date End Date Michele Sinclair MD PCP - General Internal Medicine 11/29/21
--- NOTE | 2025-10-01 22:50 | ED.WOUNDLAC ---
HPI - Wound/Laceration General Chief Complaint: Wound/Laceration Stated Complaint: couldn't clean stitches from yesterday Time Seen by Provider: 10/01/25 22:38 Source: patient Mode of arrival: ambulatory Limitations: no limitations History of Present Illness HPI narrative: This is a 50-year-old male that presents to the emergency department for wound check. Reports he was trying to change his bandage today and was unable to remove the gauze. Patient had injury to his nail and was seen in the ER here yesterday. Related Data Home Medications ?Medication ?Instructions ?Recorded ?Confirmed ?Last Taken ?Type cetirizine 10 mg tablet (Zyrtec) 10 mg PO DAILY 12/20/19 05/01/25 Unknown History Allergies Allergy/AdvReac Type Severity Reaction Status Date / Time Penicillins Allergy Unknown Unknown Verified 09/30/25 17:59 POULTRY Allergy Severe Anaphylaxis Uncoded 05/01/25 08:20 Review of Systems Review of Systems: All systems reviewed & are unremarkable except as noted in HPI and below PMFSH Past Medical History Medical History (Updated 10/01/25 @ 22:51 by Erna Gastelum PA-C) Allergy to chicken meat Exposure to influenza Herpes zoster Allergic rhinitis Depression Sleep apnea Egg allergy Hypercholesteremia Surgical History Surgical History No history of previous surgery Family History Family History Mother Family history of osteoporosis Sibling Patient's brother is in good health Father Family history of diabetes mellitus in first degree relative Diabetes mellitus Social History Social History Smoking status: Never smoker Second hand tobacco smoke exposure: No Alcohol intake: current Gender identity (if verbalized by the patient): Male Exam Narrative: GENERAL: Well-appearing, well-nourished, and in no acute distress. HEAD: Normocephalic, atraumatic. EYES: EOMI. EXTREMITIES: Normal range of motion. No edema, erythema, abnormal drainage. Distal nail is avulsed. No active bleeding SKIN: Warm, dry, no rash. NEURO: No focal deficits. Alert and oriented x3. PSYCH: Normal mood and affect Course Vital Signs Vital signs: Vital Signs Temperature 97.4 F L 10/01/25 22:24 Pulse Rate 56 L 10/01/25 22:24 Respiratory Rate 18 10/01/25 22:24 Blood Pressure 139/88 10/01/25 22:24 Pulse Oximetry 97 10/01/25 22:24 Oxygen Delivery Room Air 10/01/25 22:24 Temperature 97.4 F L 10/01/25 22:24 Pulse Rate 56 L 10/01/25 22:24 Respiratory Rate 18 10/01/25 22:24 Blood Pressure 139/88 10/01/25 22:24 Pulse Oximetry 97 10/01/25 22:24 Oxygen Delivery Room Air 10/01/25 22:24 MDM - Wound/Laceration MDM Narrative Medical decision making narrative: Patient presents to the emergency department as he was having difficulty changing his bandage today. Bandage was changed. Antibiotic ointment and splint replaced. Instructed to follow-up as directed Differential Diagnosis Differential diagnosis: Likely laceration, abrasion, avulsion of skin and other (Nail avulsion) Critical Care Time Critical Care Time Critical Care Time: No Discharge Plan Discharge Clinical Impression: Visit for wound check Patient Disposition: Home Condition: Stable Instructions: Care For Your Absorbable Stitches (ED), Nail Avulsion (ED) Additional Instructions: Return to the emergency department if you experience fever, redness or swelling of your wound, abnormal drainage from your wound, or any other symptoms that are concerning to you. Apply antibiotic ointment daily. Do not soak the wound. Clean with mild soap and water daily Follow-up with orthopedics as directed Patient Language: Kinyarwanda Prescriptions: No Action erythromycin 5 mg/gram (0.5 %) ointment 1 cm LEFT EYE DAILY Qty: 3.5 0RF cetirizine [Zyrtec] 10 mg tablet 10 mg PO DAILY epinephrine 0.3 mg/0.3 mL auto-injector 0.3 mg IM ONCE Qty: 2 2RF Rx Instructions: as a single dose cephalexin 500 mg capsule 500 mg PO Q12H 5 Days Qty: 10 0RF Follow-up/Referrals: Yahir,Michele Brown M.D. [Primary Care Provider]
--- OUTSIDE RECORDS SUMMARY | 2025-10-01 22:59 | XMS_ITS | Clinical Summary ---
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
--- OUTSIDE RECORDS SUMMARY | 2025-10-01 22:59 | XMS_ITS | Clinical Summary ---
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 Office Visit [facility] [address] [phone] Michele Sinclair MD Health maintenance examination (Primary Dx); Encounter for colorectal cancer screening; Family history of premature coronary artery disease; BMI 27.0-27.9,adult 09/15/2025 Results Follow-Up [facility] [address] [place] [phone] Michele iSnclair MD POCT hemoglobin A1c, POCT lipid panel, [...] 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 Not on file Not on file Last Filed Vital Signs Vital Sign Reading Time Taken Comments Blood Pressure 143/85 09/15/2025 8:19 AM PRESSED OR 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 GLASS WORKER Pulse 54 09/15/2025 8:19 AM PRESSED OR BLOWN GLASS WORKER Temperature 36.5 C (97.7 F) 01/28/2024 1:51 PM CDT Respiratory Rate 18 05/07/2023 4:15 PM CDT Oxygen Saturation 100% 09/15/2025 8:19 AM PRESSED OR BLOWN GLASS WORKER Inhaled Oxygen Concentration - - Weight 87.1 kg (192 lb) 09/15/2025 8:19 AM PRESSED OR BLOWN GLASS WORKER Height 177.8 cm (5' 10) 09/15/2025 8:19 AM PRESSED OR BLOWN GLASS WORKER Body Mass Index 27.55 09/15/2025 8:19 AM PRESSED OR BLOWN GLASS WORKER Plan of Treatment Health Maintenance Due Date [...] POCT LIPID PANEL Routine 09/15/2025 8:31 AM PRESSED OR BLOWN GLASS WORKER Health maintenance examination POCT HEMOGLOBIN A1C Routine 09/15/2025 8 :28 AM PRESSED OR BL[employer] GLASS WORKER Health maintenance examination PSA SCREEN Routine 09/15/2025 7:47 AM PRESSED OR BL[employer] GLASS WORKER Health maintenance examination CBC WITH AUTO DIFFERENTIAL Routine 09/15/2025 7:47 AM PRESSED OR BL[employer] GLASS WORKER Health maintenance examination COMPREHENSIVE METABOLIC PANEL Routine 09/15/2025 7:47 AM PRESSED OR BLOWN GLASS WORKER Health maintenance examination from Last 3 Months Results * (ABNORMAL) POCT lipid panel (09/15/2025 8:31 AM PRESSED OR BLOWN GLASS WORKER) Pathologist [facility] [place] Cholesterol, POC 226 <200 MG/DL HDL, POC 42 >=40 mg/dL Triglycerides, POC 182(A) <=149 mg/dL LDL Cholesterol POC 148(A) <=129 mg/dL Chol/HDL Ratio, POC 5.3 NONE Non-HDL Cholesterol, POC 184 NONE mg/dL Cholesterol Total, POC 226(A) 30 - 199 mg/dL Capillary blood 09/15/2025 8 :31 AM PRESSED OR BLOWN GLASS WORKER us Michele Sinclair MD POINT OF CARE TEST ORDERAB LES Final Result * POCT hemoglobin A1c (09/15/2025 8:28 AM PRESSED OR BLOWN GLASS WORKER) [facility] Hemoglobin A1C, POC 5.2 4.0 - 5.6 % Blood 09/15/2025 8:28 AM PRESSED OR BLOWN GLASS WORKER us Michele Sinclair MD POINT OF CARE TEST ORDERAB LES Final Result * PSA screen (09/15/2025 7:47 AM PRESSED OR BLOWN GLASS WORKER) [facility] PSA, Total 1.0 0.0 - 4.0 ng/mL [facility] Blood 09/15/2025 7:47 AM PRESSED OR BLOWN GLASS WORKER 09/15/2025 9:22 AM PRESSED OR BLOWN GLASS WORKER us Michele Sinclair MD LAB BLOOD ORDERABLES Final [facility] [address] [phone] * (ABNORMAL) CBC with auto differential (09/15/2025 7:47 AM PRESSED OR BLOWN GLASS WORKER) [facility] WBC 5.9 3.5 - 10.0 K/uL [facility] RBC 4.05(L) 4.60 - 6.20 [...] % [facility] Blood 09/15/2025 7:47 AM PRESSED OR BLOWN GLASS WORKER 09/15/2025 9:22 AM PRESSED OR BLOWN GLASS WORKER us Michele Sinclair MD LAB BLOOD ORDERABLES Final Result [facility] [address] [phone] * Comprehensive metabolic panel (09/15/2025 7:47 AM PRESSED OR BLOWN GLASS WORKER) [facility] Glucose 88 74 - 200 mg/dL [facility] [...] 107.22 [facility] Blood 09/15/2025 7:47 AM PRESSED OR BLOWN GLASS WORKER 09/15/2025 9:22 AM PRESSED OR BLOWN GLASS WORKER Michele Sinclair MD LAB BLOOD ORDERABLES Final Result [facility] [address] [phone], [facility] from Last 3 Months Insurance [employer] ACCESS CHOICE [employer] Care Teams Canvas Baster Relationship Specialty Start Date End Date Michele Sinclair MD PCP - General Internal Medicine 11/29/21
[2025-10-01 23:25] VITALS: BP 131/89; PULSE 84; RESP 16; O2SAT 100
--- NOTE | 2025-10-19 13:39 | PC.NURSE ---
LATE ENTRY This note is being entered to document information to the patient's record. The following information was omitted on [10/01/25], by [Kateryna Marie RN]. VORB to cleanse and reapply metal finger splint to left hand. Left suture line cleansed and redressed and metal finger splint re-applied.
== END 2025-10-01 23:27 | disposition home or self-care (01) ==
LOC: ANHED 22:57
PROVIDERS: Emergency Provider Physician Assistant; PCP Internal Medicine
DX: S61.112D Laceration without foreign body of left thumb with damage to nail, subsequent encounter (principal); G47.30 Sleep apnea, unspecified; E78.00 Pure hypercholesterolemia, unspecified; F32.A Depression, unspecified; X58.XXXD Exposure to other specified factors, subsequent encounter
CPT/HCPCS: 29125; 29130; 99281; 99282